=== PATIENT | female | born 1955 | race Caucasian/White ===

== ENCOUNTER 2017-02-04 08:17 | Emergency (ER) | payer SELFPAY ==
--- NOTE | 2017-02-04 10:07 | UC ---
General HPI - HPI Summary HPI Summary: complaint of was walking into a residents room and fell forward onto her righthand,right kneeand right side occurred at 0745 this morning couldn't get off the floor by herseld, walking with a limp at this time her right knee ,right hand pain denies hitting her head jnee constant aching pain - worse with weight bearing -nothing lessems the pain hasn't taken any medication for pain right hadn and 4th finger constant aching , moving 4th finger is painful - History of Current Complaint Chief Complaint: UCLowerExtremity Stated Complaint: W/C RIGHT KNEE,RIB,PINKY FINGER/LEFT ELBOW INJURY Time Seen by Provider: 02/04/17 09:58 Hx Obtained From: Patient - Allergy/Home Medications Allergies/Adverse Reactions: Allergies Allergy/AdvReac Type Severity Reaction Status Date / Time Penicillins Allergy Unknown Verified 06/23/16 17:37 Reaction Details Prochlorperazine Allergy Unknown Verified 06/23/16 17:37 [From Compazine] Reaction Details Sulfamethoxazole Allergy See Comment Verified 06/23/16 17:44 w/Trimethoprim [From Bactrim] Home Medications: Home Medications Oxybutynin Chloride (Bulk) [Oxybutinin Chloride] 1 tab PO BID 02/04/17 [History Confirmed 02/04/17] PMH/Surg Hx/FS Hx/Imm Hx Previously Healthy: No - chronic conditions, RA Endocrine History Of: Reports: Diabetes - Does not test BS, non insulin dependent Denies: Thyroid Disease Cardiovascular History Of: Reports: Hypertension Denies: Cardiac Disorders Respiratory History Of: Denies: COPD, Asthma GI/ History Of: Denies: Ulcer Cancer History Of: Denies: Breast Cancer - Surgical History Surgical History: Yes Surgery Procedure, Year, and Place: HYSTERECTOMY. SINUS SX X 2 - Family History Known Family History: Negative: Cardiac Disease, Hypertension, Renal Disease - Social History Occupation: Employed Full-time Lives: With Family Alcohol Use: Rare Substance Use Type: None Smoking Status (MU): Former Smoker Type: Cigarettes - Immunization History Most Recent Influenza Vaccination: 2012 Review of Systems Constitutional: Negative Skin: Negative Eyes: Negative ENT: Negative Respiratory: Negative Cardiovascular: Negative Gastrointestinal: Negative Genitourinary: Negative Motor: Negative Neurovascular: Negative Musculoskeletal: Other: - right knee, right hand pain Neurological: Negative Psychological: Negative All Other Systems Reviewed And Are Negative: Yes Physical Exam Triage Information Reviewed: Yes Appearance: No Pain Distress, Well-Nourished Vital Signs: Initial Vital Signs Temp 98.7 F 02/04/17 08:24 Pulse 73 02/04/17 08:24 Resp 20 02/04/17 08:24 BP 152/77 02/04/17 08:24 Vital Signs Reviewed: Yes Eyes: Positive: Conjunctiva Clear ENT: Positive: Pharynx normal, TMs normal Neck: Positive: Supple, Other: - no cspine tenderness Respiratory: Positive: Chest non-tender, Lungs clear, Normal breath sounds, No respiratory distress, No accessory muscle use Cardiovascular: Positive: RRR, No Murmur, Pulses Normal Abdomen Description: Positive: Nontender, Soft Bowel Sounds: Positive: Present Musculoskeletal: Positive: Other: - RLE- tenderness and edema over patella Full ROM (extension/flexion). Limited internal and external rotation. negative Anterior/Posterior Drawer signs, Lachmans, and McMurrays Tests. No effusion, bulge/balloon sign. RUE- right hand - tenderness and edema in 4th finger, no metacarpal tenderness, negative snuff box tenderness, full ROM in right hand Neurological: Positive: Alert Psychological Exam: Normal Skin Exam: Normal Course/Dx - Differential Dx - Multi-Symptom Differential Diagnoses: Other - hand/finger contusion, finger fracture, knee sprain, knee contusion, knee fracture Provider Diagnoses: right knee contusion. right hand contusion Discharge - Discharge Plan Condition: Stable Disposition: HOME Patient Education Materials: Knee Pain (ED), Contusion in Adults (ED), RICE Therapy (ED) Referrals: Bairon Mclaughlin MD [Primary Care Provider] - Additional Instructions: you have contusions on your right knee and right hand rest your knee and hand, apply ice twice a day and take tylenol for pain as needed Please review your discharge instructions. If your symptoms do not improve please call your primary care provider or return to urgent care. Your blood pressure is elevated. Please contact your primary care provider within 1 day -4 weeks for further evaluation.
[2017-02-04] MEDS ORDERED: Acetaminophen TAB* 325 MG PO ONE (10:12)
[2017-02-04 10:35] VITALS: BP 143/79
--- NOTE | 2017-02-04 11:00 | RAD ---
INDICATION: Fall on outstretched hand, now with pain at the "fourth finger" metacarpal phalangeal and proximal interphalangeal joints. COMPARISON: None. TECHNIQUE: 2 views of the right hand were obtained. FINDINGS: The adequately corticated bones are in normal alignment. No significant focal osseous abnormality or fracture is seen. Joint spaces appear maintained. IMPRESSION: Normal right hand radiograph. If the patient's symptoms persist, follow-up imaging is recommended.
--- NOTE | 2017-02-04 11:01 | RAD ---
INDICATION: Anterior right knee pain after a fall COMPARISON: None TECHNIQUE: 2 view radiograph of the right knee. FINDINGS: The visualized bones are well-corticated and properly aligned. The joint spaces are properly maintained. There is no radiographic evidence of joint effusion. There is no acute fracture, dislocation or other focal bony abnormality. IMPRESSION: Normal knee radiograph as described above. If the patient's symptoms persist, follow-up imaging is recommended.
== END 2017-02-04 11:19 | disposition home or self-care (01) ==
LOC: UCCORT 08:17
DX: S80.01XA Contusion of right knee, initial encounter (principal); S60.221A Contusion of right hand, initial encounter; W18.30XA Fall on same level, unspecified, initial encounter; Y93.89 Activity, other specified; Y92.199 Unspecified place in other specified residential institution as the place of occurrence of the external cause; Y99.0 Civilian activity done for income or pay; E11.9 Type 2 diabetes mellitus without complications; I10 Essential (primary) hypertension; Z90.710 Acquired absence of both cervix and uterus; Z88.0 Allergy status to penicillin; Z88.2 Allergy status to sulfonamides; Z88.8 Allergy status to other drugs, medicaments and biological substances; Z87.891 Personal history of nicotine dependence
CPT/HCPCS: 99212; A9270-GY; G0463

== ENCOUNTER 2017-08-12 15:31 | Emergency (ER) | payer BC ==
[2017-08-12 15:50] VITALS: BP 158/90
--- NOTE | 2017-08-12 16:28 | UC ---
Dental HPI - HPI Summary HPI Summary: DENTAL FRACTURE TO RIGHT LOWER JAW TWO DAYS AGO. AREA WAS SHARP AND FEELS SHE CUT HER TONGUE. USED OTC TOOTH PATCHING COMPOUND. TODAY HAVING SWOLLEN LYMPH NODE. DENTAL PAIN TO AREA AND TENDER SWOLLEN TONGUE NEAR SITE OF INJURY. - History of Current Complaint Chief Complaint: UCDentalProblem Stated Complaint: EAR PAIN/DENTAL Time Seen by Provider: 08/12/17 16:03 Hx Obtained From: Patient Hx Last Menstrual Period: n/a Onset/Duration: Gradual Onset, Lasting Days Severity: Moderate Related History: Swelling - Allergies/Home Medications Allergies/Adverse Reactions: Allergies Allergy/AdvReac Type Severity Reaction Status Date / Time Penicillins Allergy Unknown Verified 08/12/17 15:50 Reaction Details Prochlorperazine Allergy Unknown Verified 08/12/17 15:50 [From Compazine] Reaction Details Sulfamethoxazole Allergy See Comment Verified 08/12/17 15:50 w/Trimethoprim [From Bactrim] PMH/Surg Hx/FS Hx/Imm Hx Previously Healthy: Yes - Surgical History Surgical History: Yes Surgery Procedure, Year, and Place: HYSTERECTOMY. SINUS SX X 2 - Family History Known Family History: Negative: Cardiac Disease, Hypertension, Renal Disease - Social History Occupation: Employed Full-time Lives: With Family Alcohol Use: Rare Substance Use Type: None Smoking Status (MU): Former Smoker Type: Cigarettes - Immunization History Most Recent Influenza Vaccination: 2012 Review of Systems Constitutional: Negative Skin: Negative Eyes: Negative ENT: Dental Pain, Ear Ache Respiratory: Negative Cardiovascular: Negative Gastrointestinal: Negative Genitourinary: Negative Motor: Negative Neurovascular: Negative Musculoskeletal: Negative Neurological: Negative Psychological: Negative Is Patient Immunocompromised?: No All Other Systems Reviewed And Are Negative: Yes Physical Exam Triage Information Reviewed: Yes Appearance: Well-Appearing, No Pain Distress, Well-Nourished Vital Signs: Initial Vital Signs Temp 98.3 F 08/12/17 15:47 Pulse 64 08/12/17 15:47 Resp 14 08/12/17 15:47 BP 158/90 08/12/17 15:47 Vital Signs Reviewed: Yes Eye Exam: Normal ENT: Positive: Pharynx normal, TMs normal, Dental tenderness - #29, Other - AIRWAY PATENT NO EDEMA. Negative: TM bulging, TM dull, TM red, Tonsillar swelling Dental: Positive: Percussion Tenderness @ - #29, Abscess @ - #29, Other: - 0.5 CM SMOOTH ULCERATION WITH MILD LOCAL EDEMA AND AND TENDERNESS TO RIGHT LATERAL TONGUE Neck: Positive: Supple, Nontender, Enlarged Nodes @ - RIGHT ANTERIOR CERVICAL CHAIN LN Respiratory Exam: Normal Respiratory: Positive: Chest non-tender, Lungs clear, Normal breath sounds, No respiratory distress, No accessory muscle use Cardiovascular Exam: Normal Cardiovascular: Positive: RRR, No Murmur, Pulses Normal, Brisk Capillary Refill Abdominal Exam: Normal Abdomen Description: Positive: Nontender, No Organomegaly Musculoskeletal Exam: Normal Musculoskeletal: Positive: Strength Intact, ROM Intact Neurological Exam: Normal Psychological Exam: Normal Skin Exam: Normal Dental Complaint Course/Dx - Differential Dx/Diagnosis Differential Diagnosis/Dx: Dental Abscess, Dental Caries, Odontogenic Pain Provider Diagnoses: FRACTURED TOOTH #29; RIGHT LATERAL TONGUE CELLULITIS ( ASPECT OF #29) Discharge - Discharge Plan Condition: Stable Disposition: HOME Prescriptions: Clindamycin Cap(NF) [Clindamycin Cap 300 mg Cap(NF)] 300 mg PO TID #30 cap Patient Education Materials: Dental Abscess (ED), Acute Dental Trauma (ED) Referrals: Bairon Mclaughlin MD [Primary Care Provider] - Images Dental: 1 - FRACTURE HERE; 2 - 0.5 CM X 0.5 CM SMOOTH ULCERATION WITH TENDERNESS AND EDEMA TO RIGHT LATERAL TONGUE
== END 2017-08-12 16:30 | disposition home or self-care (01) ==
LOC: UCCORT 15:31
DX: K03.81 Cracked tooth (principal); K12.2 Cellulitis and abscess of mouth; Z90.710 Acquired absence of both cervix and uterus; Z88.0 Allergy status to penicillin; Z88.2 Allergy status to sulfonamides; Z88.8 Allergy status to other drugs, medicaments and biological substances; Z87.891 Personal history of nicotine dependence
CPT/HCPCS: 99212; G0463